=== PATIENT | female | born 1960 | race African-American/Black ===

== ENCOUNTER 2020-06-30 11:22 | Emergency (ER) | payer SELFPAY ==
[~2020-06-30] VITALS: Ht 149.9 cm; Wt 59.0 kg
[~2020-06-30 11:22] MED LIST: HYDR1TAB33 PO; LISI2.5T PO
[2020-06-30 11:29] VITALS: BP 162/88
--- NOTE | 2020-06-30 11:35 | ED.ADGEN ---
Past Medical History Past Medical History: Hypertension, Kidney Stone Past Surgical History: , Hysterectomy Additional Past Surgical Histo: thyroid, bladder repair Smoking Status: Current Every Day Smoker Alcohol Use: Occasionally Drug Use: None General Adult EDM: Chief Complaint: COUGH HPI: HPI: Patient is a 59 year old female coming in for productive cough with green phlegm for the past week. Denies any other symptoms. Has been taking Mucinex without improvement. Denies any fevers, sore throat, nasal congestion, vomiting or diarrhea. Patient states she does not smoke or have a history of any lung disease. No known sick contacts. Patient is received both of her COVID-19 vaccines. Review of Systems: Review of Systems: All other systems within normal limits except for as noted in the HPI Allergies: Allergies: Allergies Coded Allergies Type Severity Reaction Last Updated Verified No Known Drug Allergies 06/30/20 No Physical Exam: PE: Constitutional: Well developed, well nourished, no acute distress, non-toxic appearance. [] HENT: Normocephalic, atraumatic, bilateral external ears normal, nose normal. [] Eyes: PERRLA, conjunctiva normal, no discharge. [] Neck: No rigidity, supple, no stridor. [] Cardiovascular: Regular rate and rhythm, brisk cap refill [] Lungs & Thorax: Non labored symmetric respirations, no tachypnea or respiratory distress. Diffuse rhonchi [] Abdomen: Soft, nondistended. Skin: Warm, dry, no erythema, no rash. [] Back: Unremarkable Extremities: No deformities, range of motion grossly intact, no lower extremity edema [] Neurologic: Alert and oriented X 3, no focal deficits noted. [] Psychologic: Affect normal, judgement normal, mood normal. [] Current Patient Data: Vital Signs: Vital Signs Date Time Temp Pulse Resp B/P (MAP) Pulse Ox O2 Delivery O2 Flow Rate FiO2 06/30/20 11:29 97.9 95 20 162/88 (112) 100 Room Air 97.9 EKG: EKG: [] Heart Score: C/O Chest Pain: No Risk Factors: Risk Factors: DM, Current or recent (<one month) smoker, HTN, HLP, family history of CAD, obesity. Risk Scores: Score 0 - 3: 2.5% MACE over next 6 weeks - Discharge Home Score 4 - 6: 20.3% MACE over next 6 weeks - Admit for Clinical Observation Score 7 - 10: 72.7% MACE over next 6 weeks - Early Invasive Strategies Radiology/Procedures: Radiology/Procedures: Chest AP portable 06/30/2020. Reason for exam: Cough. No infiltrate or effusion is seen. Heart size and pulmonary vascularity appear normal. IMPRESSION: No acute abnormality. [] Course & Med Decision Making: Course & Med Decision Making Pertinent Labs and Imaging studies reviewed. (See chart for details) [] Dragon Disclaimer: Dragon Disclaimer: This electronic medical record was generated, in whole or in part, using a voice recognition dictation system. Departure Departure Impression: Primary Impression: Bronchitis Disposition: 01 DC HOME SELF CARE/HOMELESS Condition: STABLE Referrals: NO PCP (PCP) Patient Instructions: Acute Bronchitis Scripts Azithromycin (ZITHROMAX) 250 Mg Tablet 1 PKG PO UD for antibiotic, #6 TAB Prov: MASOOD HANDY MD 06/30/20 Prednisone (PREDNISONE) 50 Mg Tablet 1 TAB PO DAILY for steroid, #5 TAB Prov: MASOOD HANDY MD 06/30/20 Guaifenesin/Dextromethorphan (Cough & Chest Congest Dm Liq) 177 Ml Liquid 177 ML PO PRN Q4-6HRS PRN for COUGH for 5 Days, #177 ML Prov: MASOOD HANDY MD 06/30/20 MASOOD HANDY MD Jun 30, 2020 11:35
[2020-06-30] MEDS ORDERED: AZIT250T PO (12:05)
[2020-06-30] MEDS ORDERED: GUAI177L20 PO (12:05)
[2020-06-30] MEDS ORDERED: PRED50TA PO (12:05)
--- NOTE | 2020-06-30 12:19 | RAD ---
Chest AP portable 06/30/2020. Reason for exam: Cough. No infiltrate or effusion is seen. Heart size and pulmonary vascularity appear normal. IMPRESSION: No acute abnormality. Electronically signed by: Rodríguez Cleary Jr., MD (06/30/2020 12:17 PM) [id number]
== END 2020-06-30 12:16 | disposition home or self-care (01) ==
LOC: ER 11:22
DX: J40 Bronchitis, not specified as acute or chronic (principal); R05 Cough; I10 Essential (primary) hypertension; F17.200 Nicotine dependence, unspecified, uncomplicated; Z87.442 Personal history of urinary calculi; Z98.890 Other specified postprocedural states; Z90.710 Acquired absence of both cervix and uterus
CPT/HCPCS: 71045; 99283

== ENCOUNTER 2020-10-01 14:34 | Emergency (ER) | payer OTHER, BC ==
[~2020-10-01] VITALS: Ht 149.9 cm; Wt 55.0 kg
[~2020-10-01 14:34] MED LIST changes: +AZIT250T PO; +GUAI177L20 PO; +PRED50TA PO
[2020-10-01 18:55] VITALS: BP 157/96
[2020-10-01] MEDS ORDERED: CYCL10TA2 PO (19:03)
[2020-10-01] MEDS ORDERED: TRAM-48 PO (19:03)
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
[2020-10-01] MEDS ORDERED: CYCLOBENZAPRINE 10 MG TABLET. PO ONE (19:30)
[2020-10-01] MEDS ORDERED: KETOROLAC 30 MG/ML VIAL. IM ONE (19:30)
== END 2020-10-01 19:23 | disposition home or self-care (01) ==
LOC: ER 14:34
DX: S39.012A Strain of muscle, fascia and tendon of lower back, initial encounter (principal); S16.1XXA Strain of muscle, fascia and tendon at neck level, initial encounter; I10 Essential (primary) hypertension; F17.200 Nicotine dependence, unspecified, uncomplicated; Z90.710 Acquired absence of both cervix and uterus; V49.49XA Driver injured in collision with other motor vehicles in traffic accident, initial encounter; Y93.89 Activity, other specified; Y92.488 Other paved roadways as the place of occurrence of the external cause; Y99.8 Other external cause status
CPT/HCPCS: 96372; 99283; J1885